=== PATIENT | male | born 1955 | race Caucasian/White ===

== ENCOUNTER 2018-02-09 10:59 | Day surgery (SDC) | payer OTHER ==
[~2018-02-09 10:59] MED LIST: Acetaminophen TAB* 325 MG PO PRN; Buffered Lidocaine 0.9% SYRIN* 5 ML/SYR SYRINGE INTRADERM ONE
[2018-02-09] MEDS ORDERED: fentaNYL* 50 MCG/ML 2 ML VIAL (100 MCG VIAL) ONE (12:36)
[2018-02-09] MEDS ORDERED: Midazolam* 1 MG/ML 5 ML VIAL (5 MG) ONE (12:36)
[2018-02-09 13:43] VITALS: BP 110/72
[2018-02-09] MEDS ORDERED: Lidocaine 1%* 5 ML VIAL ONE (15:35)
[2018-02-09] MEDS ORDERED: Cyclopentolate 1% OPTH.SOL* 2 ML BTL ONE (15:35)
[2018-02-09] MEDS ORDERED: Phenylephrine 2.5% OPTH.SOL* 2 ML BTL ONE (15:35)
[2018-02-09] MEDS ORDERED: Neomycin/Polymy/Dex OPHTH.OIN* 3.5 GM ONE (15:35)
[2018-02-09] MEDS ORDERED: Tropicamide 1% OPTH.SOL* BTL ONE (15:35)
[2018-02-09] MEDS ORDERED: Tetracaine 0.5% OPTH.SOL 4 ML* 1 DROP BTL ONE (15:35)
[2018-02-09] MEDS ORDERED: Ketorolac 0.5% OPHTH (NF) 0.5 % 5 ML BTL ONE (15:36)
--- NOTE | 2018-02-09 15:39 | OP ---
DATE OF OPERATION/DATE OF DICTATION: 02/09/2018 - [facility] DATE OF : 1955. SURGEON: Dr. Shan Cuevas. CARDROOM ATTENDANT: None. ANESTHESIA: Topical with intravenous sedation. PRE-OP DIAGNOSIS: Cataract, left eye. POST-OP DIAGNOSIS: Cataract, left eye. OPERATIVE PROCEDURE: Phacoemulsification and cataract extraction with posterior chamber intraocular lens implant, left eye. COMPLICATIONS: None. BLOOD LOSS: None. DESCRIPTION OF PROCEDURE: The patient was brought to the operating room and received a small amount of intravenous sedation. A drop of Tetracaine was placed in his left eye. He was prepped and draped in the usual sterile fashion for ophthalmic surgery and attention was directed to the left eye where a speculum was placed. A paracentesis was created at the 5 o'clock position and 0.1 cc of 1 percent preservative-free Lidocaine was injected into the anterior chamber followed by DisCoVisc. The eye was digitally stabilized while a 2.75 mm keratome was used to create a triplanar clear corneal incision at the 3 o' clock position. A continuous curvilinear capsulorrhexis was created with a cystotome and Utrata forceps. BSS on a cannula was used to hydrodissect the lens from the capsule. Phacoemulsification was performed in a divide-and- conquer technique to create four fragments which were removed. Residual cortical material was removed with irrigation and aspiration. DisCoVisc was used to inflate the capsular bag and an AUOOTO 19.0 diopter lens was folded and inserted into the capsular bag. DisCoVisc was removed using irrigation and aspiration. BSS on a cannula was used to hydrate the corneal stroma and seal the wound. At the end of the case the pupil was round and the lens was centered. The eye was of normal pressure and the wound was water tight. The speculum was removed and topical Maxitrol ointment was placed on the surface of the eye. The eye was closed, patched and shielded and the patient was sent to the recovery room in stable condition with post operative instructions and follow-up appointment given. [id number]/[facility] #: [id number] MTDD
== END 2018-02-09 13:54 | disposition home or self-care (01) ==
LOC: OREAST 10:59
PROVIDERS: ATTEND Ophthalmology
DX: H25.12 Age-related nuclear cataract, left eye (principal); I10 Essential (primary) hypertension; J45.909 Unspecified asthma, uncomplicated; I35.0 Nonrheumatic aortic (valve) stenosis; J45.20 Mild intermittent asthma, uncomplicated
CPT/HCPCS: A9270-GY; J2250; J3010; V2632

== ENCOUNTER → 2018-07-23 11:26 | Day surgery (SDC) | payer OTHER ==
[~2018-07-23 11:26] MED LIST changes: -Acetaminophen TAB* 325 MG PO PRN; +Bacitracin OINTMENT* 0.5% 0.5 oz TUBE ONE; -Buffered Lidocaine 0.9% SYRIN* 5 ML/SYR SYRINGE INTRADERM ONE; +Buffered Lidocaine 1% SYRIN* 1 ML/SYRINGE INTRADERM ONE; +Bupivacaine 0.5% W/EPI SDV* 30 ML VIAL ONE; +Lactated Ringers 1000 ML Bag* 1,000 ML IV SCH; +Lidocaine 1% INJ* 10 MG/ML 30 ML SDV ONE; +Lidocaine 2% PF * 5 ML VIAL ONE; +Midazolam* 1 MG/ML 2 ML VIAL (2 MG) ONE; +Midazolam* 1 MG/ML 5 ML VIAL (5 MG) ONE; +Naloxone* 0.4 MG/ML 1 ML VIAL IV PRN; +Propofol* 10 MG/ML 20 ML BTL ONE; +ceFAZolin 2 GM in NS PREMIX(*) 2 GM/100 ML BAG IVPB ONE; +fentaNYL* 50 MCG/ML 2 ML VIAL (100 MCG VIAL) ONE
[2018-07-23 17:06] VITALS: BP 138/80
--- NOTE | 2018-07-23 23:40 | OP ---
OPERATIVE REPORT: DATE OF OPERATION: 07/23/18 DATE OF : 55 SERVICE: General Surgery. ATTENDING SURGEON: Karie Rock MD AQUACULTURE FARMER: None. ANESTHESIOLOGIST: Dr. Jermaine Tavarez. ANESTHESIA: MAC and local anesthesia. PRE-OP DIAGNOSIS: Left posterior neck mass. POST-OP DIAGNOSIS: Left posterior neck mass. OPERATIVE PROCEDURE: Excision of left posterior neck mass. ESTIMATED BLOOD LOSS: Minimal. SPECIMEN: Posterior neck mass. INDICATION FOR SURGERY: Mr. Anaya is a very pleasant 62-year-old gentleman who presented with a left posterior neck mass that he said was becoming larger and more bothersome. An ultrasound showed that it was subcutaneous and very close to the muscle and appeared to sebaceous cyst. He wished to have it removed. Therefore, he gave informed consent for an excision of the left posterior neck mass. He understood the risks, benefits, and alternatives of the procedure and he wished to proceed. DESCRIPTION OF PROCEDURE: The patient was brought back to the operating room and placed on the operating room table in the lateral decubitus position with the right side down. His posterior neck was prepped and draped in normal sterile fashion. Prior to beginning in the surgery, he had received IV antibiotics and a time-out was performed verifying the patient's name, MR number , and procedure to be performed. Local anesthesia with 0.25% Marcaine and 1% lidocaine was infiltrated into his neck over the location of the mass. At this time, he was undergoing MAC anesthesia. An incision was made through the skin into the subcutaneous tissue. The mass was located and it was approximately 1.5 cm circumferentially and had a white sheen to it. It was circumferentially dissected. It was located very close to the muscle which was dissected off it, and then once it was dissected out and removed, it was taken off the table as specimen. The cavity itself was then irrigated and examined. Hemostasis was obtained. A single deep suture was placed using 3-0 Vicryl suture and the skin was closed using interrupted 3-0 Prolene sutures. Sterile dressing was then placed. The patient was awoken from his anesthesia and he was taken to the PACU in stable condition. At the end of the case, all counts were correct and I was present during the entirety of the case. [id number]/[facility] #: [id number] [facility]
== END | disposition home or self-care (01) ==
LOC: OR 11:26
PROVIDERS: ATTEND Surgery
DX: R22.1 Localized swelling, mass and lump, neck (principal)
CPT/HCPCS: 88304; A9270-GY; J0690; J2250; J2704; J3010